=== PATIENT | male | born 1965 | race Caucasian/White ===

== ENCOUNTER 2022-06-05 05:32 | Emergency (ER) | payer MEDICAID ==
[~2022-06-05] VITALS: Ht 175.3 cm; Wt 91.0 kg
[2022-06-05 05:40] VITALS: BP 142/92
== END 2022-06-05 07:46 | disposition left against medical advice (07) ==
LOC: ER 05:32
DX: Z53.21 Procedure and treatment not carried out due to patient leaving prior to being seen by health care provider (principal)